=== PATIENT | male | born 1985 | race Two or more races ===

== ENCOUNTER 2025-06-25 10:33 | Emergency (ER) | payer MEDICAID ==
[~2025-06-25] VITALS: Ht 165.1 cm; Wt 72.6 kg
[2025-06-25] MEDS ORDERED: LIDOCAINE 1% INJ 50 ML MDV IJ ONE (11:23)
[2025-06-25] MEDS ORDERED: TDAP [DIPH/PERTUSSIS/TET] 0.5 ML VIAL IM ONE (11:33)
[2025-06-25] MEDS: TDAP [DIPH/PERTUSSIS/TET] 0.5 ML VIAL IM ONE (11:40)
[2025-06-25] MEDS: LIDOCAINE 1% INJ 50 ML MDV IJ ONE (11:41)
[2025-06-25] MEDS ORDERED: CEPH-570 PO (12:42)
[2025-06-25 13:36] VITALS: BP 150/96; TEMP 98.3; O2SAT 96
== END 2025-06-25 13:37 | disposition home or self-care (01) ==
LOC: ER 10:56
DX: S61.213A Laceration without foreign body of left middle finger without damage to nail, initial encounter (principal); W26.8XXA Contact with other sharp object(s), not elsewhere classified, initial encounter; Y93.89 Activity, other specified; Y92.89 Other specified places as the place of occurrence of the external cause; Y99.9 Unspecified external cause status
CPT/HCPCS: 12001; 73140; 90471; 90715; 99285; A6403; J3490